=== PATIENT | female | born 1935 | race Caucasian/White ===

== ENCOUNTER → 2021-04-23 | Outpatient (CLI) | payer MEDICARE ==
[~2021-04-23] MED LIST: ADVIL200 M1 PO; COLACE 100MG C100 MG PO; DOK PLUS TABLE1 EACH PO; K-DUR TAB 10 M10 MEQ PO; LASIX20 MG PO; OMNICEF 300 MG300 MG PO; XANAX 0.25 MG0.25 MG PO
== END ==
LOC: EXRD 14:30
DX: R22.41 Localized swelling, mass and lump, right lower limb (principal)
CPT/HCPCS: 93971

== ENCOUNTER 2021-04-26 08:32 | Emergency (ER) | payer MEDICARE ==
[~2021-04-26 08:32] MED LIST changes: -COLACE 100MG C100 MG PO; -K-DUR TAB 10 M10 MEQ PO; -LASIX20 MG PO
[2021-04-26 09:35] LABS: HEMOGLOBIN 13.1 gm/dl (12.3-15.3); RED BLOOD COUNT 4.37 M/UL (4.00-5.10); WHITE BLOOD COUNT 6.4 K/UL (4.5-11.0)
[2021-04-26 10:00] LABS: BUN/CREATININE RATIO 19 (0-10)
[2021-04-26] MEDS ORDERED: K-DUR TAB 10 M10 MEQ PO (15:19)
[2021-04-26] MEDS ORDERED: LASIX20 MG PO (15:19)
[2021-04-26] MEDS ORDERED: COLACE 100MG C100 MG PO (15:22)
== END 2021-04-26 15:50 | disposition home or self-care (01) ==
LOC: ER1 08:32
PROVIDERS: Physician Assistant
DX: R60.0 Localized edema (principal); K59.00 Constipation, unspecified; D25.9 Leiomyoma of uterus, unspecified; N83.8 Other noninflammatory disorders of ovary, fallopian tube and broad ligament; I25.2 Old myocardial infarction; Z86.73 Personal history of transient ischemic attack (TIA), and cerebral infarction without residual deficits; Z79.01 Long term (current) use of anticoagulants; Z79.899 Other long term (current) drug therapy
CPT/HCPCS: 71046; 76856; 80053; 81001; 82550; 82553; 83874; 83880; 84484; 85025; 93005; 99285

== ENCOUNTER 2022-01-22 00:12 | Emergency (ER) | payer MEDICARE ==
[~2022-01-22 00:12] MED LIST changes: +COLACE 100MG C100 MG PO; +K-DUR TAB 10 M10 MEQ PO; +LASIX20 MG PO
[2022-01-22 00:50] LABS: HEMOGLOBIN 11.8 gm/dl (12.3-15.3); RED BLOOD COUNT 4.01 M/UL (4.00-5.10); WHITE BLOOD COUNT 6.5 K/UL (4.5-11.0)
[2022-01-22 01:12] LABS: BUN/CREATININE RATIO 28 (0-10)
== END 2022-01-22 04:16 | disposition home or self-care (01) ==
LOC: ER1 00:12
PROVIDERS: Family Medicine
DX: R07.9 Chest pain, unspecified (principal)
CPT/HCPCS: 70450; 71045; 80053; 82550; 82553; 83880; 84484; 85025; 93005; 99285

== ENCOUNTER 2022-03-07 08:54 | Inpatient (IN) | payer MEDICARE, MEDICAID ==
[~2022-03-07] VITALS: Ht 152.4 cm; Wt 70.3 kg
[2022-03-07 09:52] LABS: HEMOGLOBIN 11.9 gm/dl (12.3-15.3); RED BLOOD COUNT 4.03 M/UL (4.00-5.10); WHITE BLOOD COUNT 9.2 K/UL (4.5-11.0)
[2022-03-07 10:14] LABS: BUN/CREATININE RATIO 23 (0-10)
[2022-03-07] MEDS ORDERED: MECLIZINE HCL12.5 MG PO (14:43)
[2022-03-07] MEDS ORDERED: NITROGLYCERIN0.4 MG SL (14:44)
[2022-03-07] MEDS ORDERED: ASPIRIN EC81 MG PO (14:46)
[2022-03-07] MEDS ORDERED: MULTIVITAMIN1 EACH PO (14:47)
[2022-03-07] MEDS ORDERED: STOOL SOFTENER250 MG PO (14:48)
[2022-03-07 18:13] LABS: HEMOGLOBIN 11.8 gm/dl (12.3-15.3); RED BLOOD COUNT 4.02 M/UL (4.00-5.10)
[2022-03-07 18:35] LABS: BUN/CREATININE RATIO 20 (0-10)
[2022-03-08 07:10] LABS: HEMOGLOBIN 11.5 gm/dl (12.3-15.3); RED BLOOD COUNT 3.93 M/UL (4.00-5.10)
[2022-03-08 07:43] LABS: BUN/CREATININE RATIO 15 (0-10)
[2022-03-09 06:16] LABS: HEMOGLOBIN 11.2 gm/dl (12.3-15.3); RED BLOOD COUNT 3.8 M/UL (4.00-5.10); WHITE BLOOD COUNT 4.9 K/UL (4.5-11.0)
[2022-03-09] MEDS ORDERED: LEVOFLOXACIN500 MG PO (10:54)
== END 2022-03-09 16:45 | disposition home or self-care (01) | DRG 444 ==
LOC: ER1 08:54 → CDU 14:00 → M/S 14:00
PROVIDERS: Internal Medicine; Physician Assistant; ADMIT Internal Medicine
DX: K81.0 Acute cholecystitis (principal); K85.90 Acute pancreatitis without necrosis or infection, unspecified; Z20.822 Contact with and (suspected) exposure to COVID-19; I25.10 Atherosclerotic heart disease of native coronary artery without angina pectoris; J44.9 Chronic obstructive pulmonary disease, unspecified; Z95.5 Presence of coronary angioplasty implant and graft; Z86.73 Personal history of transient ischemic attack (TIA), and cerebral infarction without residual deficits; Z79.01 Long term (current) use of anticoagulants; Z79.82 Long term (current) use of aspirin; I25.2 Old myocardial infarction; Z98.51 Tubal ligation status; Z87.891 Personal history of nicotine dependence
CPT/HCPCS: 36415; 71045; 76705; 80048; 80053; 81001; 82150; 82550; 82553; 83690; 83735; 84484; 85025; 85027; 85610; 93005; 96374; 96375; 99285; J0360; J2270; J2543; Q9967; U0002